=== PATIENT | female | born 1960 | race Caucasian/White ===

== ENCOUNTER 2024-02-06 07:34 | Outpatient (CLI) | payer MEDICARE, OTHER, SELFPAY ==
--- NOTE | ~2024-02-06 | US_ITS ---
EXAMINATION: US thyroid DATE: 02/06/2024 08:09 INDICATION: Hypothyroidism TECHNIQUE: Multiple ultrasound images of the thyroid were obtained. COMPARISON: None. FINDINGS: The right thyroid lobe is not visualized and reportedly surgically absent. The left thyroid lobe hannah ures 1.5 x 0.8 x 0.5 cm. No thyroid nodules identified. IMPRESSION: 1. Small left thyroid lobe with no evident thyroid at the right thyroid fossa likely relate to report ed prior thyroidectomy versus partial thyroidectomy. Correlate with surgical history. No thyroid nodu les identified. Reviewed, dictated and finalized at location A. IMPRESSION: 1. Small left thyroid lobe with no evident thyroid at the right thyroid fossa l ikely relate to reported prior thyroidectomy versus partial thyroidectomy. Elena elate with surgical history. No thyroid nodules identified.
== END 2024-02-06 07:35 ==
LOC: MICIMG 07:39
PROVIDERS: Visit Provider Internal Medicine Endocrinology, Diabetes & Metabolism
DX: E03.9 Hypothyroidism, unspecified (principal)
CPT/HCPCS: 76536

== ENCOUNTER 2024-12-09 09:57 | Outpatient (CLI) | payer MEDICARE, SELFPAY ==
--- NOTE | ~2024-12-09 | CT_ITS ---
CT sinus wo con Ordering provider: James Rea M.D. History: . J32.0 - Chronic maxillary sinusitis . Comparison: None. Technique: Thin slice Scans CT of the paranasal sinuses was performed with coronal and sagittal refor matted images. No IV contrast. . Automated exposure control and iterative reconstruction technique w ere employed. The dose-length product was 303.89 mGy-cm. Findings: NASAL SEPTUM: midline. OSTEOMEATAL UNITS: Bilaterally patent. NASAL TURBINATES AND NASOPHARYNX: Normal. PARANASAL SINUSES: Bilateral maxillary sinus disease. Mild bilateral ethmoid sinus disease. Well aera leona. VISUALIZED MASTOIDS: Normal as visualized. BONES: Normal. SUPERFICIAL SOFT TISSUES/VISUALIZED BRAIN PARENCHYMA: Normal. Bilateral temporomandibular joint osteoarthritic changes. IMPRESSION: Mild bilateral maxillary and ethmoid sinus disease. Other appearances are unremarkable Reviewed, dictated and finalized at location A.
== END 2024-12-09 09:58 | disposition home or self-care (01) ==
LOC: MICIMG 09:58
PROVIDERS: PCP Otolaryngology; Visit Provider Otolaryngology
DX: J32.0 Chronic maxillary sinusitis (principal); J32.2 Chronic ethmoidal sinusitis; J34.0 Abscess, furuncle and carbuncle of nose; H81.09 Meniere's disease, unspecified ear
CPT/HCPCS: 70486